=== PATIENT | male | born 1970 | race Caucasian/White ===

== ENCOUNTER 2016-11-22 07:23 | Emergency (ER) | payer OTHER ==
[2016-11-22 08:08] LABS: URINE CULTURE PL NEEDED? NO; URINE SOURCE CLEAN CATCH
[2016-11-22 08:25] LABS: BILIRUBIN URINE NEGATIVE (NEGATIVE); BLOOD URINE NEGATIVE (NEGATIVE); CLARITY CLEAR (CLEAR); COLOR YELLOW; GLUCOSE URINE NEGATIVE (NEGATIVE); LEUKOCYTES URINE TRACE (NEGATIVE); NITRITE URINE NEGATIVE (NEGATIVE); PH URINE 6.5; PROTEIN URINE TRACE mg/dL (NEGATIVE); SP GRAVITY URINE 1.015; UROBILINOGEN URINE NORMAL
[2016-11-22 08:26] LABS: URINE EPITHELIAL CELLS <10 /HPF (<10); URINE WBC <10 /HPF (<10)
[2016-11-22 08:45] LABS: MANUAL DIFF NEEDED? NO
[2016-11-22 08:46] LABS: EOS# 0.28 X1000 (0.0-0.7); EOS% 3.6 % (0.0-10.0); HEMATOCRIT 38.6 % (42.0-52.0); HEMOGLOBIN 13.1 g/dL (14.0-18.0); IMM GRAN# 0.01 X1000 (0.0-0.04); IMM GRAN% 0.1 % (0.0-0.5); LYMPH# 1.98 X1000 (1.2-3.4); LYMPH% 25.2 % (20.5-51.1); MCH 30.7 PG (27-31); MCHC 33.9 g/dL (33-37); MCV 90.4 FL (81-99); MONO# 0.68 X1000 (0.11-0.59); MONO% 8.7 % (1.7-9.3); MPV 9.5 FL (7.4-10.4); NEUT% 61.4 % (42.2-75.2); PLT 224 X1000 (130-400); RBC 4.27 XMIL (4.7-6.1)
--- NOTE | 2016-11-22 08:55 | Diag Imaging Result Document ---
PROCEDURE NAME: FLAT/UPRIGHT ABD/1 VIEW CHEST - 11/22/2016 FLAT AND UPRIGHT ABDOMEN: FINDINGS: There is a large amount of stool in the ascending colon and stool to a lesser extent throughout the remainder of the colon. There is no evidence of small bowel or gastric distention. There has been cholecystectomy and fusion at L5-S1. IMPRESSION: Constipation. 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 Otherwise, there has been no significant change. IMPRESSION: No acute disease.
[2016-11-22 09:04] LABS: AMYLASE 50 U/L (20-200); LIPASE 33 U/L (13-60)
[2016-11-22 09:05] LABS: AGAP 8; ALBUMIN 3.6 g/dL (3.5-5.0); ALKALINE PHOSPHATASE 116 U/L (32-122); BUN 14 mg/dL (8-22); CALCIUM 8.7 mg/dL (8.8-10.2); CHLORIDE 100 mmol/L (98-107); COSMO 272; GOT 20 U/L (10-34); GPT 20 U/L (10-44); POTASSIUM 4.1 mmol/L (3.5-5.1); SODIUM 136 mmol/L (136-145); TCO2 29 mmol/L (25-35); TOTAL PROTEIN 6.1 g/dL (6.3-8.3)
--- NOTE | 2016-11-22 09:24 | PROVIDER DOCUMENTATION ---
HPI-Abdominal Pain/GI Problem - General Source: patient - History of Present Illness-ABD Nature of Presenting Problems: Pt is 46 y/o M presents to the ED with chronic abdominal pain. Pt states pain has been present for 3 months or more. Pt states pain radiates to back. Pt denies F and chills. Pt denies N/V/D. Abdominal Pain Onset Location: reports: generalized abdomen Pain Radiation: reports: back Quality of Pain: reports: aching Severity in ED: reports: mild Onset/Duration: reports: other (3 months) Timing: reports: still present, getting worse Activities at Onset: reports: light activity Exposure to sick contacts?: No Modifying Factors: improves with: nothing Associated Symptoms: reports: back/neck pain (back pain). denies: anxiety, arm pain, chest pain, constipation, cough, diaphoresis, diarrhea, dizziness, EENT symptoms, fatigue, fever/chills, genitourinary problems, headaches, heartburn, joint pain, loss of appetite, malaise, muscle aches, sinus congestion/drainage, nausea, rash, seizure, shortness of breath, sensory/motor loss, pain with inspiration, swelling/mass in abdomen, syncope, vomiting, weakness, trouble walking Last BM: unsure Dark Stools Present?: reports: none noticed Rectal Bleeding: reports: none Rectal Pain: reports: none Emesis Description: reports: none Bruising or Bleeding Gums?: No Similar Symptoms Previously?: Yes Recently seen or treated by another doctor?: Yes <Qing Ahn - Last Filed: 11/22/16 10:04> <David Mills - Last Filed: 11/22/16 10:14> - General Chief Complaint: Abdominal Pain Stated Complaint: ABD PAIN/EPIGASTRIC PAIN Time Seen by Provider: 11/22/16 08:11 Allergies/Adverse Reactions: Patient Allergies Allergy/AdvReac Type Severity Reaction Status Date / Time No Known Allergies Allergy Verified 11/22/16 07:40 Home Medications: Home Medication List Medication Instructions Recorded Confirmed Last Taken Type Fluoxetine [Prozac] 20 mg PO BID 02/12/13 11/22/16 11/22/16 History Hydrocodone/Acetaminophen [[place] 10 mg PO Q6H 03/12/14 11/22/16 11/22/16 History 10-325 Tablet] Linaclotide [Linzess] 145 mcg PO DAILY PRN PRN #14 11/22/16 Unknown Rx capsule Review of Systems - Adult - REVIEW OF SYSTEMS - ADULT Constitutional: reports: no symptoms reported Eyes: reports: no symptoms reported Ears, Nose, Mouth & Throat: reports: no symptoms reported Cardiovascular: reports: no symptoms reported Respiratory: reports: no symptoms reported Gastrointestinal: reports: abdominal pain (generalized). denies: diarrhea, nausea, vomiting Genitourinary: reports: no symptoms reported Musculoskeletal: reports: back pain. denies: joint pain, neck pain Integumentary: reports: no symptoms reported Neurological: reports: no symptoms reported Psychiatric: reports: no symptoms reported Endocrine: reports: no symptoms reported Hematologic/Lymphatic: reports: no symptoms reported Allergic/Immunologic: reports: no symptoms reported All Other Systems: Reviewed and Negative <Qing Ahn - Last Filed: 11/22/16 10:04> Past History - Adult - PAST MEDICAL HISTORY-ADULT Review of Records: reports: Nursing Assessment Review, Medications Reviewed, Social history reviewed & non-contributory. Major Childhood Illnesses: reports: denies history Cardiovascular: reports: HTN Respiratory: reports: denies history Gastrointestinal: reports: GERD Obstetrical/Gynecological: reports: denies history Genitourinary: reports: denies history Musculoskeletal: reports: denies history Neurological: reports: denies history Psychiatric: reports: anxiety, bipolar, depression Endocrine/Immune: reports: denies history Other Conditions: reports: denies history - PRIOR SURGERIES/PROCEDURES Surgical/Procedure History: reports: appendectomy, cholecystectomy - PRIOR HOSPITALIZATIONS Prior Hospitalizations: reports: for other non-related - IMMUNIZATION STATUS Childhood Immunizations: See Nurse Assessment Flu Vaccine: See Nurse Assessment - FAMILY HISTORY Family History: reviewed, not pertinent - SOCIAL HISTORY Smoking: cigarettes, greater than 1 pack/day Provider spent 3-5 mins advising pt. on dangers of tobacco.: Discussed manners to quit use, and f/u contacts for add'l counseling. Substance Use: denies Living Situation: family <Qing Ahn - Last Filed: 11/22/16 10:04> Physical Exam-General - PHYSICAL EXAM-ADULT Initial Vital Signs Reviewed: Yes - CONSTITUTIONAL General Appearance: appears well, alert, no apparent distress - EYES Eyes: PERRL/EOMI, pink conjunctivae, fundi clear, no AV nicking - HEAD, EARS, NOSE, MOUTH & THROAT HENMT: normocephalic/atraumatic, moist mucous membranes, normal ENT inspection, TMs normal, pharynx normal - NECK Neck: non-tender, full range of motion, supple, normal inspection - RESPIRATORY Respiratory: chest non-tender, lungs clear, normal breath sounds, no pleuratic chest pain, no respiratory distress, no accessory muscle use - CARDIOVASCULAR Cardiovascular: normal peripheral pulses, regular rate, rhythm, no edema, no gallop, no JVD, no murmur - GASTROINTESTINAL (ABDOMEN) Abdominal Exam: normal bowel sounds, non tender, soft, no organomegaly, no pulsatile mass - LYMPHATIC Lymphatic: no adenopathy - MUSCULOSKELETAL Back Exam: normal inspection, no CVA tenderness, no vertebral tenderness Extremity: normal range of motion, non-tender, normal gait, normal inspection, no pedal edema, no calf tenderness, normal capillary refill - SKIN Integumentary: normal color, normal turgor, warm/dry - NEUROLOGIC Neurologic: grossly normal - PSYCHIATRIC Psych/Mental Status: normal mood/affect, oriented x 3 <Qing Ahn - Last Filed: 11/22/16 10:04> Progress - PLAN OF CARE/RESULTS Progress/Plan/Lab Results: Laboratory Tests 11/22/16 11/22/16 11/22/16 07:43 08:43 08:43 WBC 7.86 RBC 4.27 L Hgb 13.1 L Hct 38.6 L MCV 90.4 MCH 30.7 MCHC 33.9 RDW Std Deviation 12.9 Plt Count 224 MPV 9.5 Immature Gran % (Auto) 0.1 Neut % (Auto) 61.4 Lymph % (Auto) 25.2 [place] % (Auto) 8.7 Eos % (Auto) 3.6 Baso % (Auto) 1.0 H Immature Gran # (Auto) 0.01 Neut # (Auto) 4.83 Lymph # (Auto) 1.98 [place] # (Auto) 0.68 H Eos # (Auto) 0.28 Baso # (Auto) 0.08 Sodium 136 Potassium 4.1 Chloride 100 Carbon Dioxide 29 Anion Gap 8 BUN 14 Creatinine 0.8 Estimated GFR/1.73 m2 > 60 BUN/Creatinine Ratio 18 Glucose 91 Calculated Osmolality 272 Calcium 8.7 L Total Bilirubin 0.30 AST 20 ALT 20 Alkaline Phosphatase 116 Total Protein 6.1 L Albumin 3.6 Globulin 3.0 Albumin/Globulin Ratio 1.0 Amylase Lipase TSH Urine Source CLEAN CATCH Urine Color YELLOW Urine Clarity CLEAR Urine pH 6.5 Ur Specific [place] 1.015 Urine Protein TRACE A Urine Ketones NEGATIVE Urine Blood NEGATIVE Urine Nitrite NEGATIVE Urine Bilirubin NEGATIVE Urine Urobilinogen NORMAL Urine Microscopic RBC Not Reportable Urine WBC TRACE A Urine Microscopic WBC <10 Ur Epithelial Cells <10 Urine Glucose NEGATIVE 11/22/16 11/22/16 08:43 08:43 WBC RBC Hgb Hct MCV MCH MCHC RDW Std Deviation Plt Count MPV Immature Gran % (Auto) Neut % (Auto) Lymph % (Auto) [place] % (Auto) Eos % (Auto) Baso % (Auto) Immature Gran # (Auto) Neut # (Auto) Lymph # (Auto) [place] # (Auto) Eos # (Auto) Baso # (Auto) Sodium Potassium Chloride Carbon Dioxide Anion Gap BUN Creatinine Estimated GFR/1.73 m2 BUN/Creatinine Ratio Glucose Calculated Osmolality Calcium Total Bilirubin AST ALT Alkaline Phosphatase Total Protein Albumin Globulin Albumin/Globulin Ratio Amylase 50 Lipase 33 TSH 1.09 Urine Source Urine Color Urine Clarity Urine pH Ur Specific [place] Urine Protein Urine Ketones Urine Blood Urine Nitrite Urine Bilirubin Urine Urobilinogen Urine Microscopic RBC Urine WBC Urine Microscopic WBC Ur Epithelial Cells Urine Glucose Orders Category Date Time Status FLAT/UPRIGHT ABD/1 VIEW CHEST [RAD] Stat Exams 11/22/16 08:13 Draft AMYLASE [CHEM] Stat Lab 11/22/16 08:43 Completed CBC WITH DIFF [HEME] Stat Lab 11/22/16 08:43 Completed COMPREHENSIVE METABOLIC PANEL [CHEM] Stat Lab 11/22/16 08:43 Completed LIPASE [CHEM] Stat Lab 11/22/16 08:43 Completed TSH Stat Lab 11/22/16 08:43 Completed UA [URINALYSIS PL W/POSS RFLX CULT] [URINALYSIS] Stat Lab 11/22/16 07:43 Completed Vital Signs - 24 hr 11/22/16 11/22/16 07:37 07:44 Temperature 97.1 F L Pulse Rate 74 Pulse Rate [ 65 Sitting] Pulse Rate [ 72 Standing] Pulse Rate [ 64 Supine] Respiratory 20 Rate Blood Pressure 135/90 Blood Pressure 126/76 [Sitting] Blood Pressure 117/78 [Standing] Blood Pressure 132/80 [Supine] O2 Sat by Pulse 99 Oximetry - XRAY 1 XRAY: Bilateral XRAY Study: Chest, Abdomen Impression: Abnormal XRAY Interpretation: constipation <Qing Ahn - Last Filed: 11/22/16 10:04> Departure <Qing Ahn - Last Filed: 11/22/16 10:04> - Departure Time of Disposition Order: 10:14 Certified Medical Emergency: Emergent <David Mills - Last Filed: 11/22/16 10:14> - Departure DIAGNOSIS: Constipation due to pain medication Disposition: HOME 01 Condition: Stable Additional Instructions: ED Follow Up Instructions: You have been treated by a care provider in the Emergency Department. These instructions are being provided to you so you can have an understanding of how to care for yourself upon discharge. Upon discharge from the Emergency Department, you are responsible for making arrangements for follow-up care by a physician of your choice. Take all prescribed medications as directed. Return to the Emergency Department immediately for any new or worsening symptoms. You may call the Physician Referral phone number at [phone] to obtain a list of Physicians who are taking new patients. Prescriptions: Linaclotide [Linzess] 145 mcg PO DAILY PRN PRN #14 capsule PRN Reason: Diarrhea Referrals: Ismael Ventura [Primary Care Provider] - Forms: Return to School/Parent Work Instructions: Linaclotide oral capsules Attestation - Scribe Verification/Attestation Scribe:: Qing Ahn Acting as Scribe for:: David Mills Scribe documention review:: This chart was documented by a scribe and accurately reflects the service the provider performed and the decisions made by the provider. <Qing Ahn - Last Filed: 11/22/16 10:04> Physician Attestation
[2016-11-22] MEDS ORDERED: LINZESS PO ONE (10:10)
[2016-11-22] MEDS ORDERED: LINZESS ONE (10:17)
[2016-11-22 10:22] VITALS: BP 132/82
== END 2016-11-22 10:22 | disposition home or self-care (01) ==
LOC: P.ED 07:23
DX: K59.03 Drug induced constipation (principal); R10.84 Generalized abdominal pain; M54.9 Dorsalgia, unspecified; I10 Essential (primary) hypertension; F41.9 Anxiety disorder, unspecified; F31.9 Bipolar disorder, unspecified; F32.9 Major depressive disorder, single episode, unspecified; F17.210 Nicotine dependence, cigarettes, uncomplicated; Z79.899 Other long term (current) drug therapy; Z71.6 Tobacco abuse counseling
CPT/HCPCS: 36415; 74022; 80053; 81001; 82150; 83690; 84443; 85025; 99284